=== PATIENT | male | born 1975 | race Hispanic/Latino ===

== ENCOUNTER 2019-09-22 15:19 | Observation (INO) | payer SELFPAY ==
[~2019-09-22] VITALS: Ht 165.1 cm; Wt 76.7 kg
--- NOTE | 2019-09-22 15:29 | NUR ---
PT TO ROOM WITH A STEADY GAIT.
--- NOTE | 2019-09-22 16:29 | NUR ---
# 20 IV INITIATED TO [facility] WITH BLOOD SPECIMENS OBTAINED. TOLERATED WELL. PLAN OF CARE DISCUSSED. VERBALIZED UNDERSTANDING. DENIES ANY NEEDS.
--- NOTE | 2019-09-22 16:45 | NUR ---
PT AMBULATED TO BATHROOM FOR UA, RETURNED TO ROOM HOLDING LT RIBS SAYING "I HAVE A CRAMP.
--- NOTE | 2019-09-22 16:53 | NUR ---
COVID SWAB COLLECTED. PT HAVING INTERMITTEN LEFT RIB CRAMPS. MEDICATED WITH TORADOL PER ORDER. ADVISED OF PLAN OF CARE.
[2019-09-22 16:56] LABS: HEMATOCRIT 33.3 % (39.0-50.0); IMMATURE GRANULOCYTES 0.2 % (0.0-5.0); MEAN CELL VOLUME 94.9 fL CALC (80.0-100.0); MEAN CORPUSCULAR HGB 34.2 pG CALC (26.0-32.0); NEUT# 5.07 thou/uL (1.82-7.42); RED BLOOD COUNT 3.51 mill/uL (4.70-6.10); RED CELL DISTRI WIDTH 13.8 % (11.5-15.5)
[2019-09-22 17:07] LABS: ALBUMIN 4.6 g/dL (3.2-5.0); ALKALINE PHOSPHATASE 148 u/l (38-126); ANION GAP 18 (6-22 (CALC)); BILIRUBIN, TOTAL 1.3 mg/dL (0.0-1.4); BUN 7 mg/dL (9-20); BUN/CREATININE RATIO 13 (12-20 (CALC)); CARBON DIOXIDE 23 mmol/l (22-30); CHLORIDE 88 mmol/l (95-108); CPK 903 u/l (52-200); CREATININE 0.6 mg/dL (0.7-1.3); GFR > 60 ML/MIN (>=60 (CALC)); GFR FOR AFR.AMER. > 60 ML/MIN (>=60 (CALC)); LIPASE 166 u/l (23-300); POTASSIUM 3.5 mmol/l (3.5-5.1); SGOT/AST 194 u/l (17-59); SODIUM 126 mmol/l (137-146); TOTAL PROTEIN 8.3 g/dL (6.3-8.2)
--- NOTE | 2019-09-22 17:18 | NUR ---
ASSISTED PT UP TO WC FOR CT, PT STATES PAIN IS MUCH IMPROVED.
--- NOTE | 2019-09-22 18:25 | NUR ---
MD AT BEDSIDE FOR LP. PT TOLERATED WELL.
--- NOTE | 2019-09-22 18:56 | NUR ---
PT REPORT TO POORNIMA MOYER.
--- NOTE | 2019-09-22 19:00 | NUR ---
PT RESTING. VSS. PT REMAINS SUPINE POST SPINAL TAP. A/O RAMIREZ. LACTIC ACID DRAWN. ANTIBIOTIC INFUSING.
[2019-09-22 19:50] LABS: URINE BILIRUBIN - DIPSTICK NEGATIVE (NEGATIVE); URINE BLOOD DIPSTICK NEGATIVE (NEGATIVE); URINE COLOR YELLOW; URINE GLUCOSE - DIPSTICK NEGATIVE (NEGATIVE); URINE KETONE NEGATIVE (NEGATIVE); URINE LEUK ESTERASE NEGATIVE (NEGATIVE); URINE NITRITE - DIPSTICK NEGATIVE (Negative); URINE PH 6.5 (4.5-8.0); URINE PROTEIN - DIPSTICK NEGATIVE (NEG-TRACE); URINE SPECIFIC GRAVITY <=1.005; URINE UROBILINOGEN - DIPSTICK 0.2 E.U./dL (0.2)
--- NOTE | 2019-09-22 19:52 | NUR ---
ATTEMPTED TO CALL REPORT...MICHAEL WILL CALL BACK.
--- NOTE | 2019-09-22 20:35 | NUR ---
REPORT TO MICHAEL NOGUERA.
--- NOTE | 2019-09-22 20:40 | NUR ---
TO ICU VIA STRETCHER WITH VANCO INFUSING. PT TRANSFERRED TO BED AND KEPT SUPRINE. ACYLIVIR TO FLOOR WITH PT AND GIVEN TO POORNIMA RODRIGUEZ.
--- NOTE | 2019-09-22 20:55 | NUR ---
PT PRESENTS TO FLOOR. FLAT ON STRETCER, AAOX3. ASSISTED TO BED 6 WITHOUT INCIDENT.
[2019-09-22 21:00] VITALS: BP 132/79
--- NOTE | 2019-09-22 21:15 | NUR ---
PT DENIES H/A OR PAIN TO NECK. AAOX3, PT ANSWERING QUESTIONS IN FAROESE TO LAKISHA NOGUERA. RM SAFETY REVIEWED, PT VERBALIZED UNDERSTANDING. CALL RODRIGUEZ IN REACH.
--- NOTE | 2019-09-22 22:00 | NUR ---
PT REMAINS FLAT ON BACK. NO C/O H/A AT THIS TIME.
[2019-09-23] VITALS: BP 122/67
--- NOTE | 2019-09-23 | NUR ---
PT SLEEPING, NO DISTRESS AT THIS TIME. CLL RODRIGUEZ IN REACH.
--- NOTE | 2019-09-23 03:04 | NUR ---
BLISTER NOTED ON TOP OF L HAND.
--- NOTE | 2019-09-23 03:45 | NUR ---
REPEAT ACCU CHECK 120. SKIN DRY, PT AWAKE AND ALERT. CALL RODRIGUEZ IN REACH.
[2019-09-23 04:00] VITALS: BP 141/73
--- NOTE | 2019-09-23 04:00 | NUR ---
PT AWAKE AND ALERT. NO COMPLAINTS AT THIS TIME. CALL RODRIGUEZ IN REACH.
[2019-09-23 05:46] LABS: BUN 9 mg/dL (9-20); BUN/CREATININE RATIO 15 (12-20 (CALC)); CARBON DIOXIDE 24 mmol/l (22-30); CPK 850 u/l (52-200); CREATININE 0.6 mg/dL (0.7-1.3); GFR > 60 ML/MIN (>=60 (CALC)); GFR FOR AFR.AMER. > 60 ML/MIN (>=60 (CALC)); POTASSIUM 4.2 mmol/l (3.5-5.1)
[2019-09-23 05:53] LABS: ANION GAP 12 (6-22 (CALC)); CHLORIDE 101 mmol/l (95-108); SODIUM 133 mmol/l (137-146)
--- NOTE | 2019-09-23 06:15 | NUR ---
PT MOVED TO RM 3 FOR R/O PRECAUTIONS.
--- NOTE | 2019-09-23 07:06 | NUR ---
REPORT TO MARCO ANTONIO NOGUERA
[2019-09-23 08:00] VITALS: BP 158/95
--- NOTE | 2019-09-23 08:00 | NUR ---
PT ASSESSED, PT LAYING IN BED WITH BEADS OF SWEAT ON FOREHEAD, PT DENIES PAIN OR DISCOMFORT, EATING BREAKFAST. ALERT AND ORIENTED, MOVES ALL EXTREMITIES. LUNGS ARE CLEAR BILAT, PT HAS A TREMOR, DR CONROY NOTIFIED.
--- NOTE | 2019-09-23 09:00 | NUR ---
DR CONROY AT BEDSIDE, WILL MONITOR PATIENT STATUS UNTIL THIS AFTERNOON FOR DISCHARGE.
--- NOTE | 2019-09-23 11:40 | NUR ---
PT UP TO BSC, 800ML OUT. LUNCH AT BEDSIDE.
[2019-09-23 12:00] VITALS: BP 166/86
--- NOTE | 2019-09-23 13:45 | NUR ---
DR CONROY NOTIFIED PT WANTS TO GO HOME, PT HAS A HEADACHE AND WHAT APPEARS TO BE ETOH WITHDRAWAL.
--- NOTE | 2019-09-23 14:11 | NUR ---
DR CONROY WANTS TO MONITOR HIS STATUS UNTIL 0, WILL REEVALUATE AT THAT TIME FOR DISCHARGE.
[2019-09-23 16:00] VITALS: BP 163/92
--- NOTE | 2019-09-23 16:00 | NUR ---
PT RESTING IN BED, AFEBRILE, DENIES PAIN OR DISCOMFORT AT THIS TIME, ALERT AND ORIENTEDX3, MOVES ALL EXTREMITIES. CALL LIGHT WITHIN REACH. SEE PROCESS INTERVENTIONS FOR FULL ASSESSMENT.
--- NOTE | 2019-09-23 17:00 | NUR ---
Dinner at bedside.
--- NOTE | 2019-09-23 17:30 | NUR ---
discharge orders received, pt family contacted.
--- NOTE | 2019-09-23 18:20 | NUR ---
Discharge instructions given. Patient verbalizes understanding of same. Discharged in stable condition via Wheelchair to Home with family. All belongings sent with pt.
== END 2019-09-23 18:20 | disposition home or self-care (01) | DRG 558 ==
LOC: ED 15:19 → ED-I 18:50 → ED 19:09 → ICU 19:10 → ED-I 19:10 → ICU 19:28
PROVIDERS: Family Medicine; ADMIT Internal Medicine; ATTEND Internal Medicine
PROC: 009U3ZX Drainage of Spinal Canal, Percutaneous Approach, Diagnostic (ICD-10-PCS; principal; 2019-09-22)
DX: M62.82 Rhabdomyolysis (principal); E87.1 Hypo-osmolality and hyponatremia; E86.0 Dehydration; F10.10 Alcohol abuse, uncomplicated; K70.10 Alcoholic hepatitis without ascites; F17.210 Nicotine dependence, cigarettes, uncomplicated; Z20.828 Contact with and (suspected) exposure to other viral communicable diseases
CPT/HCPCS: J0133

== ENCOUNTER 2021-01-27 20:04 | Emergency (ER) | payer SELFPAY ==
[~2021-01-27] VITALS: Ht 167.6 cm; Wt 79.0 kg
[2021-01-27 21:18] LABS: IMMATURE GRANULOCYTES 0.5 % (0.0-5.0); MEAN CELL VOLUME 90.5 fL CALC (80.0-100.0); MEAN CORPUSCULAR HGB CONC 34.3 g/dL CAL (32.0-36.0); NEUT# 7.18 thou/uL (1.82-7.42); RED BLOOD COUNT 2.74 mill/uL (4.70-6.10); RED CELL DISTRI WIDTH 18.1 % (11.5-15.5)
[2021-01-27 21:20] LABS: HEMATOCRIT 24.8 % (39.0-50.0); HEMOGLOBIN 8.5 g/dl (14.0-18.0)
[2021-01-27 21:35] LABS: PROTHROMBIN TIME 10.7 SECONDS (9.0-12.5)
[2021-01-27 21:37] LABS: ALBUMIN 4.2 g/dL (3.2-5.0); ALKALINE PHOSPHATASE 147 u/l (38-126); ANION GAP 20 (6-22 (CALC)); BILIRUBIN, TOTAL 1.3 mg/dL (0.0-1.4); BUN 10 mg/dL (9-20); BUN/CREATININE RATIO 12 (12-20 (CALC)); CARBON DIOXIDE 22 mmol/l (22-30); CHLORIDE 92 mmol/l (95-108); CREATININE 0.9 mg/dL (0.7-1.3); ETHYL ALCOHOL 241 mg/dl (0-30); GFR > 60 ML/MIN (>=60 (CALC)); GFR FOR AFR.AMER. > 60 ML/MIN (>=60 (CALC)); SGOT/AST 199 u/l (17-59); SODIUM 131 mmol/l (137-146); TOTAL PROTEIN 7.6 g/dL (6.3-8.2)
[2021-01-27 21:40] LABS: POTASSIUM 3.3 mmol/l (3.5-5.1)
[2021-01-27 23:02] VITALS: BP 126/87
[2021-01-27 23:28] VITALS: BP 133/81
[2021-01-28 00:03] VITALS: BP 156/93
[2021-01-28 00:04] VITALS: BP 156/93
== END 2021-01-28 00:04 | disposition short-term general hospital (02) | DRG 379 ==
LOC: ED 20:04
PROVIDERS: Emergency Medicine
PROC: 30233N1 Transfusion of Nonautologous Red Blood Cells into Peripheral Vein, Percutaneous Approach (ICD-10-PCS; principal; 2021-01-27)
PROC: 30233N1 Transfusion of Nonautologous Red Blood Cells into Peripheral Vein, Percutaneous Approach (ICD-10-PCS; 2021-01-27)
DX: K62.5 Hemorrhage of anus and rectum (principal); M47.812 Spondylosis without myelopathy or radiculopathy, cervical region; F10.10 Alcohol abuse, uncomplicated; Y90.8 Blood alcohol level of 240 mg/100 ml or more; F17.210 Nicotine dependence, cigarettes, uncomplicated
CPT/HCPCS: P9016; S0164

== ENCOUNTER 2021-02-09 20:03 | Observation (INO) | payer SELFPAY ==
[~2021-02-09] VITALS: Ht 167.6 cm; Wt 72.0 kg
--- NOTE | 2021-02-09 20:03 | NUR ---
EMS TO ROOM
[2021-02-09 21:06] LABS: HEMATOCRIT 24.3 % (39.0-50.0); HEMOGLOBIN 7.8 g/dl (14.0-18.0); IMMATURE GRANULOCYTES 0.2 % (0.0-5.0); MEAN CORPUSCULAR HGB 29.5 pG CALC (26.0-32.0); MEAN CORPUSCULAR HGB CONC 32.1 g/dL CAL (32.0-36.0); NEUT# 7.74 thou/uL (1.82-7.42); RED BLOOD COUNT 2.64 mill/uL (4.70-6.10); RED CELL DISTRI WIDTH 16.5 % (11.5-15.5)
[2021-02-09 21:07] LABS: URINE BILIRUBIN - DIPSTICK NEGATIVE (NEGATIVE); URINE BLOOD DIPSTICK NEGATIVE (NEGATIVE); URINE COLOR YELLOW; URINE GLUCOSE - DIPSTICK NEGATIVE (NEGATIVE); URINE KETONE NEGATIVE (NEGATIVE); URINE LEUK ESTERASE NEGATIVE (NEGATIVE); URINE PH 6.5 (4.5-8.0); URINE PROTEIN - DIPSTICK NEGATIVE (NEG-TRACE); URINE UROBILINOGEN - DIPSTICK 0.2 E.U./dL (0.2)
[2021-02-09 21:09] LABS: URINE NITRITE - DIPSTICK NEGATIVE (Negative)
[2021-02-09 21:15] LABS: ALBUMIN 3.6 g/dL (3.2-5.0); ALKALINE PHOSPHATASE 138 u/l (38-126); ANION GAP 11 (6-22 (CALC)); BILIRUBIN, TOTAL 0.9 mg/dL (0.0-1.4); BUN 8 mg/dL (9-20); BUN/CREATININE RATIO 11 (12-20 (CALC)); CHLORIDE 94 mmol/l (95-108); CREATININE 0.7 mg/dL (0.7-1.3); ETHYL ALCOHOL 0 mg/dl (0-30); GFR > 60 ML/MIN (>=60 (CALC)); GFR FOR AFR.AMER. > 60 ML/MIN (>=60 (CALC)); POTASSIUM 3.6 mmol/l (3.5-5.1); SGOT/AST 108 u/l (17-59); SODIUM 128 mmol/l (137-146); TOTAL PROTEIN 7.2 g/dL (6.3-8.2)
[2021-02-09 21:17] LABS: CARBON DIOXIDE 27 mmol/l (22-30)
[2021-02-09 21:24] LABS: PROTHROMBIN TIME 10.8 SECONDS (9.0-12.5)
--- NOTE | 2021-02-09 21:27 | NUR ---
RETURNED FROM CT AWAKE CONVERSANT
--- NOTE | 2021-02-09 22:30 | NUR ---
VOIDED 1000 CC CLEAR YELLOW URINE
--- NOTE | 2021-02-09 22:59 | NUR ---
LAB HERE FOR BLOOD DRAW. RESTING QUIETLY
[2021-02-10] VITALS (10 sets, daily range): BP systolic 111–145; BP diastolic 59–68
--- NOTE | 2021-02-10 | NUR ---
NO SIGNIFICANT CHANGE NOTED.
--- NOTE | 2021-02-10 01:00 | NUR ---
C/O LEFT SHOULDER PAIN. MD ADVISED ORDERS NOTED.
--- NOTE | 2021-02-10 02:42 | NUR ---
Admission Note Report Given to: TANJA Transported by: Wheelchair X Stretcher Transported with: X Nurse Transporter X Patent IV O2 X Manager Educational Location: ICU X MS[facility]
--- NOTE | 2021-02-10 02:45 | NUR ---
PT ARRIVED TO MS2 VIA STRETCHER ACCOMPANIED BY ER NURSE, PT ALERT AND ORIENTED X3, SPEAKS A LITTLE BROKEN UZBEK, PARAGUAYAN HIS FIRST LANGUAGE, VACCINE KEY CUSTOMER LEADER SPEAKS PARAGUAYAN. DISCUSSED POC AND NEED FOR BLOOD TRANSFUSION. PT STATES HE RECENTLY RECEIVED BLOOD IN [facility] AND HAD NO REACTIONS. CONSENT FOR BLOOD SIGNED. PT HAS A LOW GRADE TEMP OF 100.0 CALL MADE TO ER PER DR. VAZQUEZ MEDICATE PT WITH TYLENO WHEN TEMP WNL START TRANSFUSION. PT MEDICATED WITH TYLENOL. PT C/O PAIN TO L SHOULDER, INFORMED PT OF FRACTURE. OFFERED ICE PT DECLINED. ORIENTED PT TO ROOM AND CALL LIGHT, ADMISSION ASSESSMENT COMPLETED, CALL LIGHT IN REACH,CONTINUE TO MONITOR.
--- NOTE | 2021-02-10 04:29 | NUR ---
PT AFEBRILE AT THIS TIME, 98.3. BLOOD TUBING WITH NS INFUSING. RN AT BEDSIDE DISCUSSED S/S OF REACTIONS WITH PT IN NIGERIAN, VERBALIZED UNDERSTANDING. 1 UNIT OF PRBC'S INITIATED. CALL LIGHT IN REACH,CONTINUE TO MONITOR.
--- NOTE | 2021-02-10 07:03 | NUR ---
PT RESTING IN BED, 1ST UNIT OF BLOOD INFUSION COMPLETED, PT VOICES NO NEEDS OR COMPLAINTS, CALL LIGHT IN REACH,CONTINUE TO MONITOR.
--- NOTE | 2021-02-10 07:20 | NUR ---
PATIENT RESTING IN BED AT THIS TIME. BLOOD INFUSING AT THIS TIME. PATIENT DEINES ANY PAIN OR SHORTNESS OF BREATH. PATIENTS RN ASSESSMET DONE SEE INTERVENTIONS. LUNG LÓPEZ ARE CLEAR. TELE MONITOR ON PATIENT AT THIS TIME WILL CONTINUE MONITORING PATIENT.
--- NOTE | 2021-02-10 10:00 | NUR ---
SECOND UNIT OF BLOOD TRANSFUSED AT THIS TIME. PATIENT STATES NO SHORTNESS OF BREATH OR CHEST PAIN. PATIENT COMPLAINING OF LEFT SHOULER PAIN AND ULTRAM 50MG PO GIVEN AT THIS TIME. FOR PAIN OF 5-6. PATIENTS EMS SITE REMOVED AT THIS TIME. AND NEW IV SITE ACCESSED IN LEFT HAND #22. PATIENT WILL CONTINUE TO BE MONITORED.
--- NOTE | 2021-02-10 11:49 | NUR ---
PATIENT LAYING IN BED WATCHING TV AT THIS TIME. PATIENT STATES PAIN LEVEL IS A 1 AT THIS TIME AND THAT HE FEELS BETTER. TELE MONITOR ON AND BEING MONITORED BY ED. SIDERAILS ARE UP CALL LIGHT IS WITHIN REACH.
[2021-02-10] MEDS ORDERED: PROTONIX40 M2 PO (13:32)
[2021-02-10] MEDS ORDERED: TRAMADOL HCL50 MG PO (13:42)
[2021-02-10 13:50] LABS: IMMATURE GRANULOCYTES 0.1 % (0.0-5.0); MEAN CELL VOLUME 89.5 fL CALC (80.0-100.0); MEAN CORPUSCULAR HGB 29.6 pG CALC (26.0-32.0); MEAN CORPUSCULAR HGB CONC 33.1 g/dL CAL (32.0-36.0); NEUT# 7.1 thou/uL (1.82-7.42); RED BLOOD COUNT 3.61 mill/uL (4.70-6.10)
[2021-02-10 13:54] LABS: HEMATOCRIT 32.3 % (39.0-50.0); HEMOGLOBIN 10.7 g/dl (14.0-18.0)
[2021-02-10 14:07] LABS: BUN 8 mg/dL (9-20); BUN/CREATININE RATIO 11 (12-20 (CALC)); CARBON DIOXIDE 26 mmol/l (22-30); CHLORIDE 103 mmol/l (95-108); CREATININE 0.7 mg/dL (0.7-1.3); GFR > 60 ML/MIN (>=60 (CALC)); GFR FOR AFR.AMER. > 60 ML/MIN (>=60 (CALC)); POTASSIUM 4.1 mmol/l (3.5-5.1)
[2021-02-10 14:16] LABS: ANION GAP 11 (6-22 (CALC)); SODIUM 136 mmol/l (137-146)
--- NOTE | 2021-02-10 16:03 | NUR ---
PATIENT RESTING IN BED AT THIS TIME. PATIENT GIVEN A SLING FOR DISCHARGE FOR LEFT ARM AND EDUCATION ON HOW TO USE. PATIENT VERBALIZES UNDERSTANDING OF SLING. PATIENT ALSO EDUCATED THAT HE WILL BE DISCHARGE LATER TONIGHT AFTER IV MAGNESIUM HAS BEEN INFUSED. PATIENT UNDERSTANDS D/C INSTRUCTIONS. TELE REMAINS ON PATIENT AT THIS TIME WILL CONTINUE TO MONITOR.
--- NOTE | 2021-02-10 17:09 | NUR ---
Discharge instructions given. Patient verbalizes understanding of same. Discharged in stable condition via Ambulatory to Home with *Other. All belongings sent with pt. PATIENT LEFT VIA TAXI APPROVED BY MARLENE SAUER. BREAKFAST HOSTESS MED/SURG FLOOR.
== END 2021-02-10 17:09 | disposition home or self-care (01) | DRG 312 ==
LOC: ED 20:03 → ED-I 02-10 01:20 → ED 02-10 01:36 → MS2 02-10 01:37
PROVIDERS: Emergency Medicine; ADMIT Hospitalist; ATTEND Hospitalist
PROC: 30233N1 Transfusion of Nonautologous Red Blood Cells into Peripheral Vein, Percutaneous Approach (ICD-10-PCS; principal; 2021-02-10)
PROC: 30233N1 Transfusion of Nonautologous Red Blood Cells into Peripheral Vein, Percutaneous Approach (ICD-10-PCS; 2021-02-10)
DX: I95.1 Orthostatic hypotension (principal); E87.1 Hypo-osmolality and hyponatremia; D64.9 Anemia, unspecified; F10.10 Alcohol abuse, uncomplicated; F17.200 Nicotine dependence, unspecified, uncomplicated; Z20.822 Contact with and (suspected) exposure to COVID-19
CPT/HCPCS: G0378; J3475; P9016; S0164

== ENCOUNTER 2021-11-16 17:13 | Emergency (ER) | payer SELFPAY ==
[~2021-11-16] VITALS: Ht 167.6 cm; Wt 81.6 kg
[2021-11-16] VITALS (10 sets, daily range): BP systolic 100–129; BP diastolic 54–89
[~2021-11-16 17:13] MED LIST: PROTONIX40 M2 PO; TRAMADOL HCL50 MG PO
[2021-11-16 17:33] LABS: HEMOGLOBIN 11.8 g/dl (14.0-18.0); IMMATURE GRANULOCYTES 0.1 % (0.0-5.0); MEAN CELL VOLUME 91.4 fL CALC (80.0-100.0); MEAN CORPUSCULAR HGB 30.8 pG CALC (26.0-32.0); MEAN CORPUSCULAR HGB CONC 33.7 g/dL CAL (32.0-36.0); NEUT# 6.27 thou/uL (1.82-7.42); RED BLOOD COUNT 3.83 mill/uL (4.70-6.10); RED CELL DISTRI WIDTH 13.8 % (11.5-15.5)
[2021-11-16 17:45] LABS: GFR FOR AFR.AMER. > 60 ML/MIN (>=60 (CALC)); GFR OTHER RACES > 60 ML/MIN (>=60 (CALC))
[2021-11-16 17:59] LABS: ALBUMIN 3.9 g/dL (3.2-5.0); ALKALINE PHOSPHATASE 114 u/l (38-126); ANION GAP 11 (6-22 (CALC)); BILIRUBIN, TOTAL 0.8 mg/dL (0.0-1.4); BUN 9 mg/dL (9-20); BUN/CREATININE RATIO 11 (12-20 (CALC)); CARBON DIOXIDE 25 mmol/l (22-30); CHLORIDE 106 mmol/l (95-108); CREATININE 0.9 mg/dL (0.7-1.3); GFR FOR AFR.AMER. > 60 ML/MIN (>=60 (CALC)); GFR OTHER RACES > 60 ML/MIN (>=60 (CALC)); POTASSIUM 3.5 mmol/l (3.5-5.1); SGOT/AST 41 u/l (17-59); SODIUM 139 mmol/l (137-146); TOTAL PROTEIN 6.9 g/dL (6.3-8.2)
== END 2021-11-16 21:58 | disposition short-term general hospital (02) | DRG 563 ==
LOC: ED 17:13 → ED-I 18:21 → ED 21:58
PROVIDERS: Family Medicine
PROC: 2W3QX1Z Immobilization of Right Lower Leg using Splint (ICD-10-PCS; principal; 2021-11-16)
DX: S82.841B Displaced bimalleolar fracture of right lower leg, initial encounter for open fracture type I or II (principal); F17.200 Nicotine dependence, unspecified, uncomplicated; W11.XXXA Fall on and from ladder, initial encounter; Y92.89 Other specified places as the place of occurrence of the external cause; Y99.0 Civilian activity done for income or pay
CPT/HCPCS: Q9967

== ENCOUNTER 2022-12-24 00:25 | Emergency (ER) | payer SELFPAY ==
[~2022-12-24] VITALS: Ht 167.6 cm; Wt 83.0 kg
[2022-12-24] VITALS (16 sets, daily range): BP systolic 138–166; BP diastolic 77–140
[2022-12-24 01:34] LABS: BASO% 0.3 % (0-3); EOS% 3.3 % (0-8); HEMATOCRIT 37.4 % (39.0-50.0); HEMOGLOBIN 12.4 g/dl (14.0-18.0); IMMATURE GRANULOCYTES 0.1 % (0.0-5.0); LYMPH% 36.3 % (15-41); MEAN CORPUSCULAR HGB 30.8 pG CALC (26.0-32.0); MEAN CORPUSCULAR HGB CONC 33.2 g/dL CAL (32.0-36.0); MONO% 7.4 % (2-13); NEUT# 6.08 thou/uL (1.82-7.42); NEUT% 52.6 % (42-76); RED BLOOD COUNT 4.02 mill/uL (4.70-6.10); RED CELL DISTRI WIDTH 13.2 % (11.5-15.5)
[2022-12-24 01:36] LABS: URINE BILIRUBIN - DIPSTICK Negative (NEGATIVE); URINE BLOOD DIPSTICK Negative (NEGATIVE); URINE GLUCOSE - DIPSTICK Negative (NEGATIVE); URINE KETONE Negative (NEGATIVE); URINE LEUK ESTERASE Negative (NEGATIVE); URINE NITRITE - DIPSTICK Negative (Negative); URINE PROTEIN - DIPSTICK Negative (NEG-TRACE); URINE UROBILINOGEN - DIPSTICK 0.2 E.U./dL (0.2)
[2022-12-24 01:40] LABS: URINE COLOR Yellow
[2022-12-24 01:48] LABS: ALBUMIN 4.1 g/dL (3.2-5.0); ALKALINE PHOSPHATASE 136 u/l (38-126); BILIRUBIN, TOTAL 0.7 mg/dL (0.2-1.3); BUN 12 mg/dL (9-20); BUN/CREATININE RATIO 19 (12-20 (CALC)); CARBON DIOXIDE 23 mmol/l (22-30); CHLORIDE 103 mmol/l (95-108); CPK 136 u/l (55-170); CREATININE 0.6 mg/dL (0.7-1.3); GFR FOR AFR.AMER. > 60 ML/MIN (>=60 (CALC)); GFR OTHER RACES > 60 ML/MIN (>=60 (CALC)); LIPASE 187 u/l (23-300); MAGNESIUM 1.6 mg/dL (1.6-2.3); SGOT/AST 53 u/l (17-59); SODIUM 135 mmol/l (137-146); TOTAL PROTEIN 7.5 g/dL (6.3-8.2)
[2022-12-24 01:49] LABS: ANION GAP 14 (6-22 (CALC)); POTASSIUM 4.5 mmol/l (3.5-5.1)
[2022-12-24] MEDS ORDERED: DICYCLOMINE HCL20 MG PO (03:32)
== END 2022-12-24 04:07 | disposition home or self-care (01) | DRG 392 ==
LOC: ED 00:25
PROVIDERS: Internal Medicine
DX: R10.84 Generalized abdominal pain (principal)
CPT/HCPCS: Q9967